=== PATIENT | female | born 1995 | race African-American/Black ===

== ENCOUNTER 2023-09-12 11:36 | Emergency (ER) | payer OTHER, MEDICAID ==
[~2023-09-12] VITALS: Ht 144.7 cm; Wt 81.6 kg
[2023-09-12 12:29] LABS: BASO % 0.4 % (0.0-1.0); EOS # 0.1 10*3/uL (0.0-0.4); EOS % 1.1 % (1.0-4.0); HEMATOCRIT 38.3 % (37.0-47.0); LYMPH # 1.9 10*3/uL (1.3-4.4); LYMPH % 33.9 % (27.0-41.0); MEAN CELL VOLUME 79.8 fl (81.0-99.0); MEAN CORPUSCULAR HGB 24.8 pg (27.0-31.0); MEAN CORPUSCULAR HGB CONC 31.1 g/dl (33.0-37.0); MEAN PLATELET VOLUME 10.1 fl (9.6-12.3); MONO # 0.4 10*3/uL (0.1-1.0); MONO % 7.4 % (3.0-9.0); NEUT # 3.3 10*3/uL (2.3-7.9); NEUT % 56.8 % (47.0-73.0); PLATELET COUNT AUTOMATED 348 10*3/uL (130-400); RED CELL DISTRI WIDTH 14.7 % (0-14.5); WHITE BLOOD COUNT 5.7 10*3/uL (4.8-10.8)
[2023-09-12 12:54] LABS: ALKALINE PHOSPHATASE 46 U/L (46-116); BUN 6 mg/dl (9-23); CHLORIDE 107 mmol/L (98-107); LIPASE 36 U/L (12-53); POTASSIUM 3.3 mmol/L (3.4-5.1); TOTAL PROTEIN 7.3 gm/dL (6.0-8.0)
[2023-09-12 12:56] LABS: BETA-HCG, QUANT < 3.0 mIU/mL (3-10); SGPT/ALT < 7 U/L (5-49)
[2023-09-12 13:03] LABS: ACT PARTIAL THROMBO TIME 28.3 SECONDS (20.0-32.1)
[2023-09-12] MEDS ORDERED: Motrin,Rufen800 MG PO (15:13)
== END 2023-09-12 15:16 | disposition home or self-care (01) ==
LOC: ED 11:36
PROVIDERS: Emergency Medicine
DX: R09.1 Pleurisy (principal); R06.02 Shortness of breath; R10.2 Pelvic and perineal pain; Z88.8 Allergy status to other drugs, medicaments and biological substances

== ENCOUNTER 2025-06-17 15:49 | Emergency (ER) | payer OTHER, MEDICAID ==
[~2025-06-17 15:49] MED LIST: Motrin,Rufen800 MG PO
[2025-06-18] MEDS ORDERED: NAPROXEN250 MG PO (01:10)
== END 2025-06-17 17:40 | disposition left against medical advice (07) ==
LOC: ED 15:49
DX: M79.652 Pain in left thigh (principal); Z53.21 Procedure and treatment not carried out due to patient leaving prior to being seen by health care provider

== ENCOUNTER 2025-06-17 21:47 | Emergency (ER) | payer OTHER, MEDICAID ==
[~2025-06-17] VITALS: Ht 144.7 cm; Wt 57.8 kg
[2025-06-17] MEDS ORDERED: SODIUM CHLORIDE 0.9% 1,000 ML IV ONE (22:20)
[2025-06-17 22:30] LABS: BASO # 0.0 10*3/uL (0.0-0.1); BASO % 0.4 % (0.0-1.0); EOS # 0.2 10*3/uL (0.0-0.4); EOS % 3.7 % (1.0-4.0); MEAN CELL VOLUME 81.4 fl (81.0-99.0); MEAN CORPUSCULAR HGB 26.0 pg (27.0-31.0); MEAN PLATELET VOLUME 10.1 fl (9.6-12.3); MONO # 0.5 10*3/uL (0.1-1.0); MONO % 8.3 % (3.0-9.0); NEUT # 2.3 10*3/uL (2.3-7.9); NEUT % 41.7 % (47.0-73.0); NUCLEATED RED BLOOD CELL 0.0 % (0.0-0.0); NUCLEATED RED BLOOD CELL 0.0 10*3/uL (0.0-0.0); PLATELET COUNT AUTOMATED 333 10*3/uL (130-400); RED CELL DISTRI WIDTH 14.5 % (0-14.5)
[2025-06-17 22:54] LABS: BUN 6 mg/dl (9-23)
[2025-06-17] MEDS ORDERED: POTASSIUM CHLORIDE 20 MEQ TAB PO ONE (23:20)
[2025-06-18] MEDS ORDERED: NAPROXEN250 MG PO (01:10)
== END 2025-06-18 01:21 | disposition home or self-care (01) ==
LOC: ED 21:47
PROVIDERS: Internal Medicine
DX: M16.12 Unilateral primary osteoarthritis, left hip (principal); R25.2 Cramp and spasm; E87.6 Hypokalemia; Z79.899 Other long term (current) drug therapy